=== PATIENT | female | born 1995 | race Caucasian/White ===

== ENCOUNTER 2016-10-26 23:35 | Emergency (ER) | payer OTHER ==
[~2016-10-26] VITALS: Ht 172.7 cm; Wt 62.5 kg
[~2016-10-26 23:35] MED LIST: GLUCOPHAGE500 MG PO; IBUPROFEN600 MG PO; KEFLEX500 MG PO; LITHOBID300 MG PO; MILLIPRED DP5 M1 PO; MOTRIN800 MG PO; Motrin PO; NOHOMEMEDS; Natalcare Rx,Pramile PO; Ortho Cyclen 28 PO; PERCOCET 5/31 TABLET PO; PREDNISONE10 MG PO; ULTRAM50 MG PO
[2016-10-27 00:37] LABS: HEMATOCRIT 39.1 % (36.0-46.0); MCH 31.3 PG (29.0-34.0); MCHC 34.5 G/DL (30.0-36.0); MCV 90.7 FL (83-99); MEAN PLAT.VOLUME 9.8 uM^3 (9.5-12.4); PLATELET COUNT 260 K/uL (156-360); RBC DIS.WIDTH-CV 11.8 % (11.8-14.6); RBC DIS.WIDTH-SD 39.3 % (39-53); RED BLOOD COUNT 4.31 M/uL (3.80-5.20); WHITE BLOOD COUNT 6.1 K/uL (4.1-10.2)
[2016-10-27 00:57] LABS: CHLORIDE 105 mEq/L (99-109); POTASSIUM 4.3 mEq/L (3.7-5.4); SODIUM 140 mEq/L (136-147)
[2016-10-27 00:59] LABS: GLUCOSE 103 mg/dL (70-99)
[2016-10-27 01:00] LABS: ANION GAP 8 MEQ/L (2-14)
[2016-10-27 01:01] LABS: TOTAL BILIRUBIN 1.1 mg/dL (0.0-1.0)
[2016-10-27 01:02] LABS: SERUM ETHYL ALCOHOL < 10 mg/dL
[2016-10-27 01:03] LABS: ALKALINE PHOSPHATASE 70 IU/L (3-129); GFR ESTIMATE (CALCULATED) > 59 mL/min/
[2016-10-27 01:04] LABS: UREA NITROGEN (BUN) 9 mg/dL (9-23)
[2016-10-27 01:06] LABS: LIPASE 15 U/L (1.0-51.0)
[2016-10-27 01:12] LABS: QUANTITATIVE HCG < 4.0 MIU/ML
[2016-10-27 01:21] LABS: ADD MIUA? YES; BILIRUBIN NEGATIVE; BLOOD NEGATIVE; COLOR YELLOW ((YELLOW)); GLUCOSE (STRIP) NEGATIVE; KETONES NEGATIVE; LEUKOCYTES NEGATIVE; NITRITE NEGATIVE; PROTEIN (STRIP) 30; SPECIFIC GRAVITY 1.028 (1.000-1.030)
[2016-10-27 01:32] LABS: COCAINE PRESUMPTIVE POSITIVE (150 ng/mL); METHAMPHETAMINE NEGATIVE (500 ng/mL); PHENCYCLIDINE NEGATIVE (25 ng/mL); THC CANNABINOIDS PRESUMPTIVE POSITIVE (50 ng/mL)
[2016-10-27 01:33] LABS: AMPHETAMINE NEGATIVE (500 ng/mL); BARBITURATES NEGATIVE (200 ng/mL); BENZODIAZEPINES NEGATIVE (150 ng/mL); INTERNAL CONTROLS VALID? YES; METHADONE PRESUMPTIVE POSITIVE (200 ng/mL); OPIATES (MORPHINE) PRESUMPTIVE POSITIVE (100 ng/mL); OXYCODONE NEGATIVE (100 ng/mL); PROPOXYPHENE NEGATIVE (300 ng/mL); TRICYCLIC ANTIDEPRESSANTS NEGATIVE (300 ng/mL)
[2016-10-27 01:34] LABS: ADD MEDTOX COMMENT Y
[2016-10-27 01:51] LABS: BACTERIA RARE /HPF; EPITHELIAL CELLS 3+ /HPF; MUCUS 4+ /LPF; RED BLOOD CELLS 0-5 /HPF (0-5); WHITE BLOOD CELLS 0-5 /HPF (0-5)
[2016-10-27 02:04] VITALS: BP 115/78
== END 2016-10-27 02:05 | disposition home or self-care (01) ==
LOC: EME 23:35
PROVIDERS: Emergency Medicine
DX: S00.93XA Contusion of unspecified part of head, initial encounter (principal); F19.10 Other psychoactive substance abuse, uncomplicated; V86.99XA Unspecified occupant of other special all-terrain or other off-road motor vehicle injured in nontraffic accident, initial encounter; Z88.1 Allergy status to other antibiotic agents
CPT/HCPCS: 80053; 81003; 83690; 84702; 84999; 85027; 99281; 99283; G0480

== ENCOUNTER 2017-02-15 22:07 | Emergency (ER) | payer OTHER ==
[~2017-02-15] VITALS: Ht 170.2 cm; Wt 66.6 kg
[2017-02-15 23:33] VITALS: BP 130/78
== END 2017-02-15 23:35 | disposition home or self-care (01) ==
LOC: RME 22:07 → EME 22:07 → RME 23:35
DX: S02.2XXA Fracture of nasal bones, initial encounter for closed fracture (principal); W50.0XXA Accidental hit or strike by another person, initial encounter; F17.200 Nicotine dependence, unspecified, uncomplicated
CPT/HCPCS: 70160; 99281; 99284